=== PATIENT | male | born 1995 | race Caucasian/White ===

== ENCOUNTER 2020-04-25 17:46 | Emergency (ER) | payer SELFPAY ==
[~2020-04-25] VITALS: Ht 165.1 cm; Wt 55.0 kg
[2020-04-25 17:54] VITALS: BP 109/36
== END 2020-04-25 19:33 | disposition home or self-care (01) ==
LOC: ER 17:46
DX: Z48.02 Encounter for removal of sutures (principal)
CPT/HCPCS: 99281